=== PATIENT | female | born 1970 | race African-American/Black ===

== ENCOUNTER 2020-10-03 09:28 | Outpatient (CLI) | payer OTHER ==
[~2020-10-03 09:28] MED LIST: Iopamidol-370 76% 500 ML 1 ML ONE
== END 2020-10-03 09:29 | disposition home or self-care (01) ==
LOC: BICCT 09:28
PROVIDERS: ATTEND Physician Assistant Medical
DX: R10.13 Epigastric pain (principal); K21.9 Gastro-esophageal reflux disease without esophagitis; K59.09 Other constipation; K43.9 Ventral hernia without obstruction or gangrene
CPT/HCPCS: 74177; Q9967